=== PATIENT | male | born 1945 | race African-American/Black ===

== ENCOUNTER 2016-08-25 17:46 | Emergency (ER) | payer MEDICARE, OTHER ==
[~2016-08-25] VITALS: Ht 177.8 cm; Wt 80.0 kg
[2016-08-25] MEDS ORDERED: HYDROCODONE/APAP 7.5/325MG 1 TAB TABLET PO ONE (23:15)
[2016-08-26] VITALS: BP 133/75
== END 2016-08-26 01:45 | disposition home or self-care (01) ==
LOC: ER 18:34
DX: M06.9 Rheumatoid arthritis, unspecified (principal); I10 Essential (primary) hypertension; Z86.73 Personal history of transient ischemic attack (TIA), and cerebral infarction without residual deficits
CPT/HCPCS: 73560; 99284

== ENCOUNTER 2017-10-27 21:30 | Emergency (ER) | payer MEDICARE, OTHER ==
[~2017-10-27] VITALS: Ht 182.9 cm; Wt 74.0 kg
[2017-10-28] MEDS ORDERED: ACETAMINOPHEN 325MG TABLET PO NR (00:45)
[2017-10-28] MEDS ORDERED: KETOROLAC 15MG/ML VIAL IM ONE (01:30)
[2017-10-28 02:09] VITALS: BP 146/84
== END 2017-10-28 06:50 | disposition home or self-care (01) ==
LOC: ER 21:30
DX: M25.562 Pain in left knee (principal); M25.561 Pain in right knee; M19.90 Unspecified osteoarthritis, unspecified site; I10 Essential (primary) hypertension; H54.40 Blindness, one eye, unspecified eye; Z86.73 Personal history of transient ischemic attack (TIA), and cerebral infarction without residual deficits; Z88.2 Allergy status to sulfonamides; W01.0XXA Fall on same level from slipping, tripping and stumbling without subsequent striking against object, initial encounter; Y93.89 Activity, other specified; Y92.89 Other specified places as the place of occurrence of the external cause; Y99.8 Other external cause status
CPT/HCPCS: 73562; 96372; 99284; J1885